=== PATIENT | female | born 1955 | race Caucasian/White ===

== ENCOUNTER 2019-05-15 07:02 | Day surgery (SDC) | payer OTHER, SELFPAY ==
[2019-05-14 16:40] VITALS: BMI 25.6
[2019-05-15] VITALS (9 sets, daily range): BP systolic 132–150; BP diastolic 62–95; PULSE 78–83; RESP 15–20; TEMP 36.2–36.9; O2SAT 92–99; BMI 24.2
[2019-05-15 07:35] LABS: Basophils Absolute Auto 0.1 K/mm3 (0.0-0.1); Basophils Percent Auto 1.1 % (0.2-1.2); Eosinophils Absolute Auto 0.2 K/mm3 (0-0.3); Eosinophils Percent Auto 5.1 % (0-4.4); Hematocrit 41.7 % (37.0-47.0); Hemoglobin 13.8 g/dL (12.0-15.0); Immature Granulocyte Absolute 0.01 K/mm3 (0.00-0.031); Immature Granulocyte Percent A 0.2 % (0-0.5); Immature Platelet Fraction Pct 15.4 % (0.9-11.2); Lymphocytes Absolute Auto 1.17 K/mm3 (0.9-3.2); Lymphocytes Percent Auto 24.6 % (18.3-44.2); Mean Corpuscular HGB Conc 33.1 g/dl (32-36); Mean Corpuscular Hemoglobin 31.2 pg (26-34); Mean Corpuscular Volume 94.1 fl (80-100); Mean Platelet Volume 12.9 fl (7.4-10.4); Monocytes Absolute Auto 0.5 K/mm3 (0.1-0.6); Monocytes Percent Auto 11.2 % (2.6-8.5); Neutrophils Absolute Auto 2.8 K/mm3 (1.3-6.7); Neutrophils Percent Auto 57.8 % (45.5-73.1); Platelet Count Result 155 k/mm3 (150-375); Red Blood Count 4.43 M/mm3 (4.2-5.4); Red Cell Distribution Width 13.2 % (11.5-14.5); White Blood Count 4.8 K/mm3 (4.5-10.0)
[2019-05-15 07:43] LABS: Blood Urea Nitrogen 16 mg/dL (7-17); Calcium 9.7 mg/dL (8.4-10.2); Carbon Dioxide 30 mmol/L (22-30); Chloride 100 mmol/L (98-107); Estimated CRCL calculation 52 ml/min; Estimated Glomerular Filt Rate > 60; Glucose 93 mg/dL (65-105); Ovalocytes 1+ (NORMAL); Platelet Estimate Adequate (Adequate); Potassium 3.7 mmol/L (3.4-5.0); Sodium 140 mmol/L (137-145)
--- NOTE | 2019-05-15 08:38 | P.HPUP_ITS ---
History and Physical Update Update Date/Time: 05/15/19 08:38 Patient with a history of bicuspid aortic valve with progressive aortic stenosis and some degree of aortic insufficiency. She has noted worsening GREENBERG and we are expecting she will need aortic valve replacement. History of right-sided non- small cell lung cancer 2006 treated with lobectomy is radiation therapy and chemotherapy. 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 History and Physical has been reviewed, including an updated exam of the patient. There are NO changes in the patient's condition. Risks, benefits, and alternatives have been discussed and questions answered. Reviewed possible risks and complications with patient including breathing problems, bleeding problems, blood vessel problems, unanticipated surgery, allergic reactions, kidney problems, CVA, PA, and among others. Patient understands risks and desires to proceed. patient agrees to proceed with procedure.
--- NOTE | 2019-05-15 08:42 | WPDMODSED ---
Moderate Sedation Note-Pt Data Patient Data Diagnosis: Aortic stenosis/insufficiency, bicuspid aortic valve Present Complaint: GREENBERG Procedure to be performed/Plan: Conscious sedation right and left heart catheterization Allergies Allergy/AdvReac Type Severity Reaction Status Date / Time No Known Allergies Allergy Mild Verified 05/15/19 07:40 Home Medications Medication Instructions Recorded Confirmed Type alprazolam 2 mg PO TID PRN 05/14/19 05/14/19 History atorvastatin 10 mg PO HS 05/14/19 05/14/19 History calcium carbonate [Calcium 500] 500 mg PO DAILY 05/14/19 05/14/19 History diltiazem HCl 120 mg PO DAILY 05/14/19 05/14/19 History ferrous sulfate 325 mg PO DAILY 05/14/19 05/14/19 History nebivolol [Bystolic] 20 mg PO BID 05/14/19 05/14/19 History quinapril 40 mg PO DAILY 05/14/19 05/14/19 History Current Medications: Active Medications Sodium Chloride (Normal Saline Iv) 500 mls @ 100 mls/hr IV CONT .Q5H JOVANNY Sedation/Anesthesia: No previous sedation/anesthesia problems (including family history). [facility] Past Medical History Medical History (Updated 05/15/19 @ 08:45 by Montserrat Mar MD) Bicuspid aortic valve Diaphragmatic paralysis Right-sided diaphragmatic paralysis, 2005, after lobectomy Lung cancer 2005, non-small cell, stage IIIB, treated with right-sided lobectomies, radiation therapy and chemotherapy Restrictive lung disease Vocal cord paralysis Surgical History Surgical History (Updated 05/15/19 @ 08:43 by Montserrat Mar MD) S/P lobectomy of lung 2005 Family History Family History Father Family history of cardiovascular disease Patient's father is , Onset Age: 73 Other No family history of malignant neoplasm Social History Social History Smoking status: Current every day smoker Alcohol intake: current Gender identity (if verbalized by the patient): Female Mod Sed Physical Exam Physical Exam Pre Procedural Exam: Normal: Appearance, Eyes, Ears, Nose, Neck, Throat (Hoarse voice), Airway, Lungs, Heart Size (3/6 harsh TANMAY, 2/6 diastolic murmur), Heart Rate, Heart Rhythm, Neuro Exam, Abdomen, Liver, Extremities (Intact femoral pulses with no bruits. Intact posterior tibial pulses; could not easily palpate dorsalis pedis pulses) and Skin (Midline surgical scar) Hours since solid foods: 12 Hours since liquid intake: 12 Internal Medicine - PN: Obj Da Vital Signs Vital Signs: Vital Signs - 24 hr 05/15/19 07:35 Temperature 36.9 C Pulse Rate 80 Respiratory Rate 16 Blood Pressure 135/88 Pulse Oximetry 99 Meds/Results Medications: Active Medications Generic Name Dose Route Start Last Admin Trade Name Carlos PRN Reason Stop Dose Admin Sodium Chloride 500 mls @ 100 mls/hr 05/15/19 06:20 Normal Saline Iv IV CONT .Q5H JOVANNY Labs CBC & Chem 7: 05/15/19 07:22 05/15/19 07:22 Labs: Laboratory Results - last 24 hr 05/15/19 05/15/19 07:22 07:22 WBC 4.8 RBC 4.43 Hgb 13.8 Hct 41.7 MCV 94.1 MCH 31.2 MCHC 33.1 RDW 13.2 Plt Count 155 MPV 12.9 H Immature Gran % (Auto) 0.2 Neut % (Auto) 57.8 Lymph % (Auto) 24.6 [place] % (Auto) 11.2 H Eos % (Auto) 5.1 H Baso % (Auto) 1.1 Lymph # (Auto) 1.17 [place] # (Auto) 0.5 Eos # (Auto) 0.2 Baso # (Auto) 0.1 Abs Immat Gran (auto) 0.01 Absolute Neuts (auto) 2.8 Absolute Nucleated RBC 0.0 Nucleated RBC % 0.0 Platelet Estimate Adequate % Immature Plt Fraction 15.4 H Ovalocytes 1+ Sodium 140 Potassium 3.7 Chloride 100 Carbon Dioxide 30 BUN 16 Creatinine 0.80 Estim Creat Clear Calc 52 Estimated GFR > 60 Glucose 93 Calcium 9.7 ASA Classification/Sedation ASA Classification/Sedation ASA Class: III Emergent: No Risks: Risks, benefits and alternatives explained and patient/family accepted plan for sedation. Reviewed possibl
--- NOTE | 2019-05-15 10:15 | PM.OP ---
Procedure Note - Brief Procedure Note - Brief Date of procedure: 05/15/19 Pre-op diagnosis: Aortic stenosis Aortic stenosis /insufficiency Post-op diagnosis: other Procedure performed: /AI, CAD withoccluded RCA Description of procedure: Left and right heart catheterization Selective coronary angiography Aortography Left ventriculogram O2 saturation when Angiography the right common femoral artery Anesthesia: local ( with conscious sedation) Surgeon: Montserrat Mar MD Estimated blood loss (mL): 20 Drains: No Packing: No Pathology: none sent Complications: No immediate complications Condition: stable Disposition: observation Findings: Findings: Occluded RCA Hyperdynamic left ventricle, EF greater than 70% Aortic stenosis, BERKLEY 0.6 cm2, mean gradient 30 mmHg Plan: Refer to [facility] for consideration of aortic valve replacement and CABG
--- NOTE | 2019-05-16 21:19 | PM.PROC ---
Procedure Note - Detailed Date of procedure: 05/16/19 Pre-op diagnosis: Aortic stenosis Symptomatic Aortic stenosis History of lung cancer stage IIB, status post right lobectomies and radiation therapy Post-op diagnosis: other (Aortic stenosis, occluded right coronary artery) Procedure performed: Procedure: 1. Conscious sedation 2. Left heart catheterization 3. Selective Coronary angiography 4. Left ventriculography 5. Right heart catheterization 6. O2 saturation run 7. Thermodilution cardiac outputs 8. Aortography 9. Angiography of the right common femoral artery Description of procedure: Site: Right femoral artery, right femoral vein Catheters: 6 Welsh arterial sheath, 6 Welsh venous sheath, 6 Welsh 4 cm right and left Sherwin catheters, 6 Welsh dual-lumen pigtail catheter, 6 Welsh no torque right coronary catheter, 6 Welsh left bypass catheter, 7 Welsh [place] catheter Conscious sedation: The patient has no known prior history of adverse affects of conscious sedation. Oropharynx was clear. The patient is deemed a good candidate for conscious sedation. Conscious sedation began at: 0904 Conscious sedation ended at: 1006 Total conscious sedation time: 62 minutes Medications: Versed 1 mg, fentanyl 50 mcg IV push The patient had continuous hemodynamic monitoring, and was also continuously monitored by: Lidia Spain RN The patient tolerated conscious sedation well. Detailed procedure: After informed consent the patient brought to the lab instructor and the right femoral area was prepped and draped in the usual fashion. After conscious sedation and local anesthesia the right femoral artery was punctured and cannulated with the arterial sheath. The right femoral vein was punctured and cannulated with the venous sheath. A [place] catheter was advanced into the central circulation and out to the wedge position. Thermodilution cardiac outputs were obtained. Selective Coronary angiography was performed with the coronary catheters in multiple projections. I was unable to cannulate the ostium of the right coronary artery despite multiple attempts with multiple catheters. These were withdrawn. The pigtail catheter was advanced into the central circulation but as expected I was unable to pass to the aortic valve even with a straight wire. However, I was able to cross the aortic valve with a right Sherwin catheter and a straight wire. Left ventricular for pressure measurements and left ventriculography was performed in the CARRANZA projection. Right heart pullback was performed. Left heart pullback was performed. Aortography was performed of the ascending aorta with 40 cc of contrast to evaluate the aorta and also to look for the right coronary artery. The pigtail catheter was withdrawn. Angiography of the right common femoral artery was performed and the sheath was in suitable position for a vascular closure device. Angio-Seal was applied, the arterial sheath was removed and hemostasis was obtained using local pressure. Later the venous sheath was removed and hemostasis obtained using local pressure. The patient tolerated the procedure well with no complications. Anesthesia: local (With conscious sedation) Surgeon: Montserrat Mar MD Estimated blood loss (mL): 20 Drains: No Packing: No Pathology: none sent Complications: No immediate complications Condition: stable Disposition: observation Findings: Pressures: Mean right atrial pressure 5 mmHg, RV 37/7, PA 38/14 with a mean of 18 mmHg, mean wedge pressure 8 mm Hg, aortic pressure 118/68 pre LV-gram with LV pressure 156/22 mmHg. Cardiac outputs: Thermodilution cardiac output was 3.4 liters/minute with a cardiac index of 2.1 liters/minute per meter squared. Alanis cardiac output was 2.6 liters/minute with a cardiac index of 1.6 liters/minute per meter squared Valve measurements: A
== END 2019-05-15 13:05 | disposition home or self-care (01) ==
PROVIDERS: PCP Family Medicine; Visit Provider Internal Medicine Cardiovascular Disease
PROC: 4A023N8 Measurement of Cardiac Sampling and Pressure, Bilateral, Percutaneous Approach (ICD-10-PCS; CPT 93453; principal; 2019-05-15 08:30)
DX: Z01.810 Encounter for preprocedural cardiovascular examination (principal); I35.0 Nonrheumatic aortic (valve) stenosis; I35.1 Nonrheumatic aortic (valve) insufficiency; R06.02 Shortness of breath; I10 Essential (primary) hypertension; E78.5 Hyperlipidemia, unspecified; Z85.118 Personal history of other malignant neoplasm of bronchus and lung; Z90.2 Acquired absence of lung [part of]; Z92.3 Personal history of irradiation; Z92.21 Personal history of antineoplastic chemotherapy
CPT/HCPCS: 36415; 80048; 85025; 85055; 93460; C1760; C1769; C1887; C1894; G0269; J1644; J2250; J3010; J7040

== ENCOUNTER 2019-06-21 15:48 | Emergency (ER) | payer OTHER, SELFPAY ==
[2019-06-21 16:02] VITALS: BP 147/90; PULSE 96; RESP 18; TEMP 36.9; O2SAT 95
--- NOTE | 2019-06-21 16:41 | ED.GENADULT ---
HPI - General Adult General Chief complaint: Unspecified Stated complaint: cough, st Time Seen by Provider: 06/21/19 16:28 Source: patient Mode of arrival: ambulatory Limitations: no limitations History of Present Illness HPI narrative: This is a 64-year-old female that presents the emergency department for cold symptoms x1 day. Reports cough, congestion and sore throat. Reports her was recently diagnosed with influenza. Reports she is supposed to be getting vocal cord surgery next week and would like to be tested for influenza. Denies fever or shortness of breath. Related Data Home Medications Medication Instructions Recorded Confirmed Bystolic 20 mg PO BID 05/14/19 05/14/19 alprazolam 2 mg PO TID PRN 05/14/19 05/14/19 atorvastatin 10 mg PO HS 05/14/19 05/14/19 calcium carbonate [Calcium 500] 500 mg PO DAILY 05/14/19 05/14/19 diltiazem HCl 120 mg PO DAILY 05/14/19 05/14/19 ferrous sulfate 325 mg PO DAILY 05/14/19 05/14/19 quinapril 40 mg PO DAILY 05/14/19 05/14/19 Allergies Allergy/AdvReac Type Severity Reaction Status Date / Time No Known Allergies Allergy Mild Verified 05/15/19 07:40 Review of Systems Review of Systems: Narrative: CONSTITUTIONAL: Denies fever ENT: Reports rhinorrhea, congestion, sore throat. Denies otalgia. RESPIRATORY: Reports cough. Denies dyspnea. All systems reviewed & are unremarkable except as noted in HPI and below PMFSH Past Medical History Medical History (Updated 06/21/19 @ 16:48 by Sadie Bond PA-C) Bicuspid aortic valve with severe aortic stenosis valve area .6 cm2 Diaphragmatic paralysis Right-sided diaphragmatic paralysis, 2005, after lobectomy Lung cancer 2006, non-small cell, stage IIIB, treated with right-sided lobectomies, radiation therapy and chemotherapy Restrictive lung disease Vocal cord paralysis Surgical History Surgical History (Updated 05/15/19 @ 08:43 by Montserrat Mar MD) S/P lobectomy of lung 2005 Social History Social History Smoking status: Current every day smoker Alcohol intake: current Gender identity (if verbalized by the patient): Female Exam Narrative: Exam Narrative: GENERAL: Well-appearing, well-nourished, and in no acute distress. HEAD: Normocephalic, atraumatic. EYES: EOMI. ENT: Nares clear, no rhinorrhea or epistaxis. Mucous membranes moist. Oropharynx without tonsillar hypertrophy exudate or other lesions. Bilateral TMs pearly najera non-bulging NECK: Supple. No adenopathy or masses. CHEST: Clear to auscultation. No respiratory distress. No wheezes rales or rhonchi HEART: Regular rate and rhythm. No murmur heard. Normal peripheral pulses. EXTREMITIES: Normal range of motion. No edema. SKIN: Warm, dry, no rash. NEURO: No focal deficits. Alert and oriented x3. PSYCH: Normal mood and affect Course Vital Signs Vital signs: Vital Signs Temperature 98.5 F 06/21/19 16:02 Pulse Rate 96 06/21/19 16:02 Respiratory Rate 18 06/21/19 16:02 Blood Pressure 147/90 H 06/21/19 16:02 Pulse Oximetry 95 06/21/19 16:02 Temperature 98.5 F 06/21/19 16:02 Pulse Rate 96 06/21/19 16:02 Respiratory Rate 18 06/21/19 16:02 Blood Pressure 147/90 H 06/21/19 16:02 Pulse Oximetry 95 06/21/19 16:02 Medical Decision Making MDM Narrative Medical decision making narrative: Patient presents the emergency department for cold symptoms since yesterday. She is afebrile and nontoxic-appearing. Vitals are normal other than mild elevation of blood pressure. Exam is benign. Patient is influenza A positive. Patient will be started on Tamiflu as she is in treatment window. She is to follow-up with her primary care doctor. She is given warnings to return to the ER Vital Signs Vital Signs: Vital Signs Temperature 98.5 F 06/21/19 16:02 Pulse Rate 96 06/21/19 16:02 Respiratory Rate 18 06/21/19 16:02 Blood Pressure 147/90 H 06/21/19 16:02 Pulse Oximetry 95 06/21/19 16:02 Temperatur
[2019-06-21] MEDS: OSELTAMIVIR PHOSPHATE 75 MG CAP PO (17:13)
== END 2019-06-21 17:19 | disposition home or self-care (01) ==
PROVIDERS: Emergency Provider Emergency Medicine; PCP Family Medicine
DX: J10.1 Influenza due to other identified influenza virus with other respiratory manifestations (principal); Z85.118 Personal history of other malignant neoplasm of bronchus and lung; Z90.2 Acquired absence of lung [part of]; J98.6 Disorders of diaphragm; I35.0 Nonrheumatic aortic (valve) stenosis; Z92.3 Personal history of irradiation; Z92.21 Personal history of antineoplastic chemotherapy
CPT/HCPCS: 87804; 99283; A9270

== ENCOUNTER 2020-01-12 16:35 | Emergency (ER) | payer OTHER, SELFPAY ==
[2020-01-12] VITALS (27 sets, daily range): BP systolic 42–128; BP diastolic 34–108; PULSE 94–107; RESP 17–47; TEMP 36.7; O2SAT 90–100
--- NOTE | ~2020-01-12 | CT_ITS ---
EXAMINATION: CT chest w con DATE: 01/12/2020 18:42 INDICATION: Patient status post right upper and middle lobectomy, concern for chest wall fluid collec tion TECHNIQUE: Transaxial computed tomographic images of the chest were obtained after the administration of 75 cc of Omnipaque 350 intravenous contrast. The dose-length product (DLP) was 148.17 mGy-cm. Ite rative reconstruction was used. COMPARISON: None FINDINGS: There are diffuse airspace opacities and bronchiectasis of the right upper lung zone. There are surgical changes of right middle and upper lobectomy with associated volume loss of the right he mithorax. There is a drainage catheter in the anterior subcutaneous tissues which ends just the right of the midline superficial to the sternum. An approximately 6.3 x 1.5 cm fluid collection is seen in the right chest wall which appears to be in or just deep to the pectoralis major muscle. There is ri ght subpectoral lymphadenopathy. The heart size is normal. There is calcified coronary artery atheros clerosis. A moderate-sized sliding hiatal hernia is noted. There are healed surgical defects in multi ple right anterior ribs. A trace right pleural effusion is present. There is no pneumothorax. Stones are present in the nondistended gallbladder. There is mild thoracic spondylosis. IMPRESSION: 1. Approximately 6.3 x 1.5 cm fluid collection of the right chest wall in, or just deep to, the pecto ralis major muscle. 2. Percutaneous drain of the anterior chest wall extending just to the right of midline superficial t o the sternum not definitely contiguous with the right chest wall fluid collection. 3. Surgical changes of the right lung with likely radiation change/treated malignancy of the upper elza ng zone. Reviewed, dictated and finalized at location A. IMPRESSION: 1. Approximately 6.3 x 1.5 cm fluid collection of the right chest wall in, or j ust deep to, the pectoralis major muscle. 2. Percutaneous drain of the anterior chest wall extending just to the right of midline superficial to the sternum not definitely contiguous with the right ch est wall fluid collection. 3. Surgical changes of the right lung with likely radiation change/treated yury gnancy of the upper lung zone.
--- NOTE | ~2020-01-12 | XR_ITS ---
EXAMINATION: XR chest 1V portable INDICATION: Fever and shortness of breath TECHNIQUE: Portable AP chest at 1726 hours COMPARISON: 01/19/2007 FINDINGS: There is complete opacification of the right hemithorax. A drain projects over the right mi d thorax which is of unclear location given chronic elevation of the right hemidiaphragm. There is a hiatal hernia. The left lung is clear. The cardiac silhouette is obscured. No definite pneumothorax i s identified. IMPRESSION: 1. Complete opacification of the right hemithorax which could reflect atelectasis, pneumonia, surgica l change, or possibly malignancy. Reviewed, dictated and finalized at location A. IMPRESSION: 1. Complete opacification of the right hemithorax which could reflect atelectas is, pneumonia, surgical change, or possibly malignancy.
--- NOTE | 2020-01-12 17:16 | ED.GENADULT ---
HPI - General Adult General Chief complaint: Fever <Lea Krueger MD - Last Filed: 01/13/20 21:50> Stated complaint: possible infected drain site <Lea Krueger MD - Last Filed: 01/13/20 21:50> Time Seen by Provider: 01/12/20 16:58 <Lea Krueger MD - Last Filed: 01/13/20 21:50> Source: patient <Lea Krueger MD - Last Filed: 01/13/20 21:50> History of Present Illness HPI narrative: Patient is a 64 y/o female complaining of fever since yesterday. She state that she had fever of 102.6. She took Tylenol, which reduced her fever. She had fever of 102 again today. She took Tylenol again prior to arrival. She has a sternal drain for sternal infection following AVR. She is concerned about infection of her drain. She denies any cough, sore throat, vomiting, diarrhea or dysuria. She denies any known exposure to COVID. <Lea Krueger MD - Last Filed: 01/13/20 21:50> Related Data Home medications: Home Medications Medication Instructions Recorded Confirmed diltiazem HCl 120 mg PO DAILY 05/14/19 11/12/19 aspirin 81 mg PO DAILY 11/12/19 11/12/19 nebivolol [Bystolic] 20 mg PO BID 11/12/19 11/12/19 <Lea Krueger MD - Last Filed: 01/13/20 21:50> Allergies/adverse reactions: Allergies Allergy/AdvReac Type Severity Reaction Status Date / Time No Known Allergies Allergy Mild Verified 01/12/20 16:48 <Lea Krueger MD - Last Filed: 01/13/20 21:50> Review of Systems Constitutional: Constitutional: Denies chills, Reports fever(s), Denies headache(s) and Denies weakness <Lea Krueger MD - Last Filed: 01/13/20 21:50> Eyes: Eyes: Denies blurry vision <Lea Krueger MD - Last Filed: 01/13/20 21:50> ENT: Denies headache(s) and Denies neck pain <Lea Krueger MD - Last Filed: 01/13/20 21:50> Cardiovascular: Cardiovascular: Denies chest pain and Denies dyspnea <Lea Krueger MD - Last Filed: 01/13/20 21:50> Respiratory: Respiratory: Denies cough and Denies dyspnea <Lea Krueger MD - Last Filed: 01/13/20 21:50> Gastrointestinal: Gastrointestinal: Denies abdominal pain, Denies diarrhea, Denies nausea and Denies vomiting <Lea Krueger MD - Last Filed: 01/13/20 21:50> Genitourinary: Genitourinary: Denies hematuria and Denies dysuria <Lea Krueger MD - Last Filed: 01/13/20 21:50> Musculoskeletal: Musculoskeletal: Denies back pain and Denies neck pain <Lea Krueger MD - Last Filed: 01/13/20 21:50> Neurologic: Denies headache(s) and Denies weakness <Lea Krueger MD - Last Filed: 01/13/20 21:50> PMFSH Past Medical History Medical History: Medical History Bicuspid aortic valve with severe aortic stenosis valve area .6 cm2 Diaphragmatic paralysis Right-sided diaphragmatic paralysis, 2005, after lobectomy Lung cancer 2005, non-small cell, stage IIIB, treated with right-sided lobectomies, radiation therapy and chemotherapy Restrictive lung disease Vocal cord paralysis <Lea Krueger MD - Last Filed: 01/13/20 21:50> Surgical History Surgical History: Surgical History History of open heart surgery (~08/2019) S/P lobectomy of lung 2005 <Lea Krueger MD - Last Filed: 01/13/20 21:50> Family History Family History: Family History Father Family history of cardiovascular disease Patient's father is , Onset Age: 73 Diabetes mellitus Mother Hypertension Other No family history of malignant neoplasm <Lea Krueger MD - Last Filed: 01/13/20 21:50> Social History Social History: Social History Smoking packs per day: 1 Smoking cigarettes per day: 20.0 Years smoked: 40 Smoking pack-years: 40.00 Smoking status: Former smoker Tobacco type: cigarettes Alcohol intake: current Gender identity (if mame
[2020-01-12 18:13] LABS: Basophils Absolute Auto 0.1 K/mm3 (0.0-0.1); Basophils Percent Auto 0.4 % (0.2-1.2); Eosinophils Percent Auto 0.3 % (0-4.4); Hematocrit 37.3 % (37.0-47.0); Hemoglobin 11.7 g/dL (12.0-15.0); Immature Granulocyte Absolute 0.07 K/mm3 (0.00-0.031); Immature Granulocyte Percent A 0.6 % (0-0.5); Immature Platelet Fraction Pct 16.5 % (0.9-11.2); Lymphocytes Absolute Auto 1.13 K/mm3 (0.9-3.2); Lymphocytes Percent Auto 9.7 % (18.3-44.2); Mean Corpuscular HGB Conc 31.4 g/dl (32-36); Mean Corpuscular Hemoglobin 30.4 pg (26-34); Mean Corpuscular Volume 96.9 fl (80-100); Monocytes Absolute Auto 1.3 K/mm3 (0.1-0.6); Monocytes Percent Auto 10.7 % (2.6-8.5); Neutrophils Absolute Auto 9.2 K/mm3 (1.3-6.7); Neutrophils Percent Auto 78.3 % (45.5-73.1); Platelet Count Result 148 k/mm3 (150-375); Red Blood Count 3.85 M/mm3 (4.2-5.4); Red Cell Distribution Width 12.9 % (11.5-14.5); White Blood Count 11.7 K/mm3 (4.5-10.0)
[2020-01-12 18:14] LABS: Add Urine Microscopic? YES; Appearance Urine Cloudy (Clear); Bacteria Urine Trace /hpf; Bilirubin Urine Negative (Negative); Blood Urine Negative (Negative); Color Urine Yellow (Yellow); Glucose Urine UA Negative (Negative); Ketones Urine Negative (Negative); Leukocyte Esterase Ur Trace LEU/UL (Negative); Mucus Urine Rare /lpf; Nitrate Urine Negative (Negative); Protein Urine Negative (Negative); RBC Urine 0-2 /hpf (0-2); Specific Grav Ur 1.019 (1.001-1.035); Squamous Epithelial Cell Urine Many /hpf (Few); Urobilinogen Urine Negative mg/dL (<2.0)
[2020-01-12 18:26] LABS: Alanine Aminotransferase 22 U/L (4-35); Alkaline Phosphatase 77 U/L (38-126); Anion Gap 7 mmol/L (8-16); Aspartate Amino Transferase 29 U/L (14-36); Bilirubin,Total 0.5 mg/dL (0.2-1.3); Blood Urea Nitrogen 19 mg/dL (7-17); Carbon Dioxide 31 mmol/L (22-30); Chloride 101 mmol/L (98-107); Estimated CRCL calculation 52 ml/min; Estimated Glomerular Filt Rate > 60; Glucose 104 mg/dL (65-105); Sodium 139 mmol/L (137-145)
[2020-01-12 20:16] LABS: Lactic Acid Reflex 0.9 mmol/L (0.7-2.1)
--- NOTE | 2020-01-12 20:36 | PC.NURSE ---
RN spoke with [facility] about transfer to answer questions. currently awaiting a bed assignment.
[2020-01-12] MEDS: LACTATED RINGERS 1,000 ML 100 ML IV CONT (21:28)
[2020-01-13] VITALS (44 sets, daily range): BP systolic 106–130; BP diastolic 72–95; PULSE 76–106; RESP 12–37; TEMP 36.8–38.4; O2SAT 89–100
[2020-01-13] MEDS: ALPRAZolam (*CRX) 0.5 MG TABLET PO (02:17)
--- NOTE | 2020-01-13 02:50 | PC.NURSE ---
Patient's O2 saturations began to range from 87%-88% on room air while sleeping. Patient placed on 2L via nasal cannula. EDP Nat notified.
--- NOTE | 2020-01-13 03:55 | PC.NURSE ---
Per EDP Nat, begin second round of antibiotics at 0400.
--- NOTE | 2020-01-13 04:51 | PC.NURSE ---
Patient placed back on room air. Current O2 saturation is 94%.
--- NOTE | 2020-01-13 05:11 | PC.NURSE ---
Spoke to [facility]. Still no beds available at this time. Update on patient's status was given.
[2020-01-13 05:36] LABS: Estimated CRCL calculation 58 ml/min; Estimated Glomerular Filt Rate > 60
--- NOTE | 2020-01-13 07:10 | PC.NURSE ---
Pt assisted back from ED into hospital bed. Is aware of pending admission and bed availability at [facility]. Denies needs at present. Call to pt's [facility] at [phone] to update on awaiting bed assignment.
--- NOTE | 2020-01-13 08:43 | PC.NURSE ---
Call to [facility], pt placement ([phone]) regarding how much longer for bed. States they don't know, that at this time there is no movement. Pt and updated.
[2020-01-13] MEDS: ASPIRIN 81 MG CHEWABLE TABLET PO (11:40)
[2020-01-13] MEDS: NEBIVOLOL HCL 5 MG TABLET 20 MG PO (11:41)
[2020-01-13] MEDS: POLYSACCHARIDE IRON COMPLEX 150 MG CAPSULE PO (11:42)
--- NOTE | 2020-01-13 11:56 | PC.NURSE ---
Pt's routine medications given. Lunch tray ordered.
--- NOTE | 2020-01-13 14:15 | PC.NURSE ---
Spoke with [facility] - requested updated vital signs. Still waiting for a bed assignment and states waiting for discharges. Unable to give estimate for bed assignment.
--- NOTE | 2020-01-13 14:30 | PC.NURSE ---
Call from [facility], states that they believe they have a bed on 7th floor but will call back with number for admission.
--- NOTE | 2020-01-13 15:49 | PC.NURSE ---
Call to [facility] to give report for room [facility]29A ([phone]). States will return call as soon as possible.
--- NOTE | 2020-01-13 16:22 | PC.NURSE ---
Call to [facility] to attempt to give report at [phone].
--- NOTE | 2020-01-13 16:30 | PC.NURSE ---
dominic was called to transfer patient to [id number]
--- NOTE | 2020-01-13 16:33 | PC.NURSE ---
Report to [facility] given. ETA of EMS @ 4365. Pt updated.
--- NOTE | 2020-01-13 17:41 | PC.NURSE ---
Call to [facility], states that now the patient has been pushed back until 1830. Pt updated.
--- NOTE | 2020-01-13 17:43 | PC.NURSE ---
Attempt to call report, floor unable to take.
[2020-01-13 18:02] LABS: SARS-CoV-2 RNA PCR Negative
--- NOTE | 2020-01-13 18:02 | PC.NURSE ---
[facility] has arrived
--- NOTE | 2020-01-13 18:27 | PC.NURSE ---
Report to [facility] to transport pt to [place].
== END 2020-01-13 18:27 | disposition short-term general hospital (02) ==
PROVIDERS: Emergency Medicine; Emergency Provider Emergency Medicine; PCP Family Medicine
DX: L02.213 Cutaneous abscess of chest wall (principal); Z20.828 Contact with and (suspected) exposure to other viral communicable diseases; Z85.118 Personal history of other malignant neoplasm of bronchus and lung; Z90.2 Acquired absence of lung [part of]; Z92.3 Personal history of irradiation; Z92.21 Personal history of antineoplastic chemotherapy
CPT/HCPCS: 36415; 71045; 71260; 80053; 81001; 82565; 83605; 85025; 85055; 87040; 87086; 87088; 87635; 96361; 96365; 96366; 96367; 96368; 96376; 99285; A9270; C9803; J0131; J2543; J3370; J7120; Q9967; U0003

== ENCOUNTER 2020-02-10 10:30 | Outpatient (RCR) | payer OTHER, SELFPAY ==
[2019-11-12 15:13] VITALS: PULSE 81
--- NOTE | 2019-11-25 09:00 | PCCPR ---
Addendum entered by Mirta Vidal RN 01/03/20 12:05: Dottie called states she is to have the fluid of her sternal area. She is to have it drained again on 01/06/[address] for a couple of weeks. Requested she get a release to return. States she was told not to raise her arms above her head with exercise. Original Note: Dottie hospitalized over the weekend with fluid buildup . She said that she had fluid drained from her lung and was to be discharged today. Informed Dottie that she will need a release before returning.
--- NOTE | 2020-01-13 08:43 | PCCPR ---
Addendum entered by Mirta Vidal RN 01/20/20 11:01: 01/20/20 Spoke with Dottie released from the hospital yesterday. She still has the drain however not draining. Currently not released to resume rehab. she is not supposed to use her upper body much. She returns to the surgeon on Monday01/27/20. States she will call us with an update after her apt. She is willing to give up her current scheduled time if need be. Original Note: pt called to [facility] pt [facility] this week- pt inpt at [facility] and being transferred to [facility] for fluid around her drain. Pt will call at end of the week to update us for next week.
--- NOTE | 2020-01-29 16:45 | PCCPR ---
Dottie called & states they removed her drain bc it wasn't working properly. She is on antibiotics (Levofloxacin) for 6 weeks. She states she forgot to ask the doctor for a release but she goes back Monday for another CT scan and will ask for it then. Will keep us updated.
--- NOTE | 2020-02-13 09:39 | PCCPR ---
Luis Alfredo-Dottie states she could barely walk down the stairs because her Achilles tendon (that area) is sore & painful. She states shes been taking Levaquin and is afraid its a side affect of the medication and is calling her doctor. she states she walked a lot yesterday and stood in line for an hour to vote. Will keep us updated on her return.
== END 2020-02-10 23:59 | disposition home or self-care (01) ==
LOC: ANHCPREHAB 10:30
PROVIDERS: PCP Family Medicine; Visit Provider Internal Medicine Cardiovascular Disease
DX: Z95.2 Presence of prosthetic heart valve (principal)
CPT/HCPCS: 93798

== ENCOUNTER 2020-03-16 10:30 | Outpatient (RCR) | payer OTHER, SELFPAY ==
[2020-02-11 00:03] VITALS: PULSE 81
== END 2020-03-16 18:57 | disposition home or self-care (01) ==
LOC: ANHCPREHAB 10:30
PROVIDERS: PCP Family Medicine; Visit Provider Internal Medicine Cardiovascular Disease
DX: Z95.2 Presence of prosthetic heart valve (principal)
CPT/HCPCS: 93798

== ENCOUNTER → 2020-05-12 09:36 | Outpatient (CLI) | payer OTHER, SELFPAY ==
--- NOTE | ~2020-05-12 | CT_ITS ---
EXAMINATION: CT abdomen pelvis wo con DATE: 05/12/2020 10:00 INDICATION: Hematuria TECHNIQUE: Computed tomography (CT) of the abdomen and pelvis was performed without intravenous contr ast. Automated exposure control and iterative reconstruction technique were employed. The dose-length product was 515.28 mGy-cm. COMPARISON: CT abdomen and pelvis dated 10/13/[address] chest dated 01/12/2020. FINDINGS: Unchanged volume loss in the right hemithorax with postoperative change of prior right upper and midd le lobectomies. There is bronchiectasis and significant atelectasis in the remaining right lower lobe . Visualized portions of the left lung are clear. Heart size is normal. Atherosclerotic coronary laura ry calcification is. Median sternotomy wires and changes of prior aortic valve repair. Mild fusiform aneurysm of ascending thoracic aorta measuring up to 4.3 cm in maximal diameter. No pericardial or pl eural effusion. Moderate-sized sliding-type hiatal hernia. Multiple old right rib fractures. There are few tiny calcified gallstones at the dependent aspect of the otherwise normal gallbladder. Liver, pancreas, bilateral adrenal glands and kidneys are normal. No evident urolithiasis. Multiple s mall splenic calcific lesion consistent with old granulomatous disease. There is mild to moderate col onic diverticulosis with a sigmoid predominance. There is no adjacent inflammatory change to suggest diverticulitis. No bowel obstruction. Appendix is normal. Bladder is normal. The uterus is not ident ified and has likely been surgically resected. 4.5 cm left adnexal cyst. Right adnexa is unremarkable . Small fat-containing left inguinal hernia. No free intraperitoneal gas or fluid. No pathologically enlarged abdominal or pelvic lymphadenopathy.. There is calcified atherosclerosis of the aorta and ma ny of the other arteries. L5 spondylolysis with bilateral pars intra-articular is defects, 10 mm ante rolisthesis L5 on S1 with severe associated disc height loss. IMPRESSION: 1. No urolithiasis or other etiology to explain reported urolithiasis. 2. Bronchiectasis and significant atelectasis in the right lower lobe post prior right upper and midd le lobectomy. 3. Mild fusiform aneurysm of ascending thoracic aortic aneurysm measuring 4.3 cm in maximal diameter with change of prior aortic valve repair. 4. Moderate-sized sliding-type hiatal hernia. 5. 4.5 cm left adnexal cyst. 6. Mild to moderate sigmoid predominant diverticulosis. 7. Small fat-containing left inguinal hernia. 3. L5 spondylolysis with severe disc height loss and 10 mm anterolisthesis on S1. Reviewed, dictated and finalized at location B. IFIED NURSES AIDE IMPRESSION: 1. No urolithiasis or other etiology to explain reported urolithiasis. 2. Bronchiectasis and significant atelectasis in the right lower lobe post prio r right upper and middle lobectomy. 3. Mild fusiform aneurysm of ascending thoracic aortic aneurysm measuring 4.3 c m in maximal diameter with change of prior aortic valve repair. 4. Moderate-sized sliding-type hiatal hernia. 5. 4.5 cm left adnexal cyst. 6. Mild to moderate sigmoid predominant diverticulosis. 7. Small fat-containing left inguinal hernia. 3. L5 spondylolysis with severe disc height loss and 10 mm anterolisthesis on S 1.
== END ==
PROVIDERS: PCP Family Medicine; Visit Provider Physician Assistant
DX: R31.9 Hematuria, unspecified (principal); D35.02 Benign neoplasm of left adrenal gland; K40.90 Unilateral inguinal hernia, without obstruction or gangrene, not specified as recurrent; K57.30 Diverticulosis of large intestine without perforation or abscess without bleeding; I71.4 Abdominal aortic aneurysm, without rupture; K44.9 Diaphragmatic hernia without obstruction or gangrene; R91.8 Other nonspecific abnormal finding of lung field
CPT/HCPCS: 74176

== ENCOUNTER → 2020-09-08 13:12 | Outpatient (CLI) | payer OTHER, SELFPAY ==
--- NOTE | ~2020-09-08 | CT_ITS ---
EXAMINATION: CT abdomen pelvis wo/w con DATE: 09/08/2020 14:08 INDICATION: Gross hematuria TECHNIQUE: Computed tomography (CT) of the abdomen and pelvis was performed without intravenous contr ast. CT of the abdomen and pelvis was then performed with a total of 130 mL Omnipaque 350 intravenous contrast using a double-bolus technique for simultaneous opacification of the renal parenchyma and r enal collecting system. The dose-length product (DLP) was 1376.22 mGy-cm. Automated exposure control and iterative reconstruction technique were employed. COMPARISON: 05/12/2020 FINDINGS: There is unchanged volume loss and near complete opacification of the visualized right lung with surgical change noted. The visualized left lung is clear. The heart size is normal. There are c hanges of aortic valve surgery. Old right-sided rib fractures likely related to thoracic surgical delgado nge. There is a moderate-sized hiatal hernia. There is fusiform enlargement of the ascending aorta wh ich measures 4.2 cm at the level of the main pulmonary artery. No dissection is identified. The liver , pancreas, and adrenal glands are normal. Punctate calcifications in an otherwise normal spleen like ly represent healed granulomatous disease. Stones are present in the nondistended gallbladder. No sto jeanette are identified in the kidneys, ureters, or bladder. There is no hydronephrosis or hydroureter. A 3 mm hypoattenuating lesion of the right mid kidney is too small to characterize but likely represent s a cyst. No suspicious renal or urothelial lesion is identified. The distal right ureter is not well opacified however no suspicious lesion is identified. There is calcified atherosclerosis of the aort a and many of the other arteries. No pathologically enlarged abdominal or pelvic lymph nodes are iden tified. There is a small left inguinal hernia containing fat. There are bilateral L5 pars defects wit h grade 1 anterolisthesis of L5 on S1 and severe loss of intervertebral disc space height. There is a 4.6 cm cyst of the left adnexa. IMPRESSION: 1. No CT correlate for the patient's symptoms. 2. Unchanged severe volume loss in the right hemithorax and right lung opacification, most consistent with treatment for lung cancer. 3. 4.6 cm cyst of the left adnexa. Sonographic follow-up is recommended for postmenopausal female. Reviewed, dictated and finalized at location A. IMPRESSION: 1. No CT correlate for the patient's symptoms. 2. Unchanged severe volume loss in the right hemithorax and right lung opacific ation, most consistent with treatment for lung cancer. 3. 4.6 cm cyst of the left adnexa. Sonographic follow-up is recommended for pos tmenopausal female.
--- NOTE | ~2020-09-08 | XR_ITS ---
XR abdomen/kub 1V 09/08/2020 14:09 INDICATION: Gross hematuria TECHNIQUE: KUB COMPARISON: CT dated 05/12/2020 FINDINGS: Bowel gas pattern is normal. There is no evidence of free air, mass, organomegaly, ascites or obstruction. No abnormal calculi are seen. The bones appear intact. Elevated right diaphragm. M oderate colonic fecal loading. There are pelvic phleboliths. IMPRESSION: 1: No acute abdominal abnormality identified. Reviewed, dictated and finalized at location A.
[2020-09-08 13:36] LABS: Estimated Glomerular Filt Rate > 60
== END ==
PROVIDERS: PCP Family Medicine; Visit Provider Nurse Practitioner Family
DX: R31.0 Gross hematuria (principal)
CPT/HCPCS: 74018; 74178; Q9967

== ENCOUNTER 2021-03-29 13:13 | Outpatient (CLI) | payer MEDICARE, OTHER, SELFPAY ==
--- NOTE | ~2021-03-29 | XR_ITS ---
XR chest 2V 03/29/2021 13:42 Indication: Shortness of breath. Right lobectomy. Open heart surgery. Procedure: 2 view chest Comparison: Comparison to multiple prior studies sequentially, with oldest reviewed study dated 12/29. Findings: Status post median sternotomy for CABG. There is a prosthetic aortic valve. There is near c omplete opacification of the right hemithorax which may represent a combination of pneumonectomy, ple ural effusion and underlying airspace disease which may represent atelectasis or pneumonia. The semin al shift to the right consistent with volume loss. There is a large hiatal hernia. Impression: 1: Near complete opacification of the right hemithorax which may represent a combination of pneumonec morgan, pleural effusion and underlying airspace disease which may represent atelectasis or pneumonia. Reviewed, dictated and finalized at location A. ATTENDANT Impression: 1: Near complete opacification of the right hemithorax which may represent a co mbination of pneumonectomy, pleural effusion and underlying airspace disease wh ich may represent atelectasis or pneumonia.
[2021-03-29 14:13] LABS: Hematocrit 26.6 % (37.0-47.0); Hemoglobin 8.6 g/dL (12.0-15.0); Immature Platelet Fraction Pct 22.1 % (0.9-11.2); Mean Corpuscular HGB Conc 32.3 g/dl (32-36); Mean Corpuscular Hemoglobin 35.4 pg (26-34); Mean Corpuscular Volume 109.5 fl (80-100); Platelet Count Result 85 k/mm3 (150-375); Red Blood Count 2.43 M/mm3 (4.2-5.4); Red Cell Distribution Width 18.4 % (11.5-14.5); White Blood Count 4.6 K/mm3 (4.5-10.0)
[2021-03-29 14:21] LABS: Alanine Aminotransferase 21 U/L (4-35); Albumin Level 4.2 g/dL (3.5-5.1); Alkaline Phosphatase 84 U/L (38-126); Anion Gap 10 mmol/L (8-16); Aspartate Amino Transferase 25 U/L (14-36); Bilirubin,Total 0.4 mg/dL (0.2-1.3); Blood Urea Nitrogen 17 mg/dL (7-17); Calcium 9.4 mg/dL (8.4-10.2); Carbon Dioxide 30 mmol/L (22-30); Chloride 103 mmol/L (98-107); Estimated Glomerular Filt Rate > 60; Glucose 105 mg/dL (65-110); Sodium 143 mmol/L (137-145)
[2021-03-29 16:20] LABS: Eosinophils Absolute Manual 0.13 K/mm3 (0.02-0.5); Eosinophils Percent Manual 3 % (0-4); Lymphocytes Absolute Manual 2.39 K/mm3 (1.1-4.5); Lymphocytes Percent Manual 52 % (18-44); Monocytes Absolute Manual 1.28 K/mm3 (0.1-0.90); Monocytes Percent Manual 28 % (3-9); Neutrophils Percent Manual 17 % (46-73); Total Cells Counted 100
[2021-03-29 16:21] LABS: Platelet Estimate Decreased (Adequate)
[2021-03-29 16:22] LABS: Ovalocytes 1+ (NORMAL)
== END 2021-03-29 13:14 | disposition home or self-care (01) ==
LOC: ANHLAB 13:18
PROVIDERS: PCP Family Medicine; Visit Provider Physician Assistant
DX: R06.02 Shortness of breath (principal); D64.9 Anemia, unspecified; G47.33 Obstructive sleep apnea (adult) (pediatric)
CPT/HCPCS: 36415; 71046; 80053; 85025; 85055

== ENCOUNTER 2021-04-05 08:09 | Outpatient (CLI) | payer MEDICARE, OTHER, SELFPAY ==
--- NOTE | ~2021-04-05 | MM_ITS ---
EXAMINATION: MM screening [facility] BI w tomasz HISTORY: Screening mammogram TECHNIQUE: Craniocaudal and mediolateral oblique 3-D tomosynthesis images were obtained and synthetic 2-D images were generated. CAD analysis was submitted and interpreted. COMPARISON: 09/18/2018, 06/01/2017 BREAST PARENCHYMAL COMPOSITION: There are scattered areas of fibroglandular density. FINDINGS: There is no evidence of suspicious mass, calcification, or architectural distortion to sugg est malignancy in either breast. There has been no suspicious interval change. IMPRESSION: 1. No mammographic evidence of malignancy. 2. Recommend routine screening mammography in one year. BI-RADS Category 1: Negative Reviewed, dictated and finalized at location A. [employer]OP SUPER[employer]OR
== END 2021-04-05 08:10 | disposition home or self-care (01) ==
LOC: ANHIMG 08:10
PROVIDERS: PCP Family Medicine; Visit Provider Physician Assistant
DX: Z12.31 Encounter for screening mammogram for malignant neoplasm of breast (principal)
CPT/HCPCS: 77063; 77067